=== PATIENT | female | born 1990 | race Caucasian/White ===

== ENCOUNTER 2024-02-03 11:05 | Emergency (ER) | payer BC, OTHER ==
[2024-02-03] VITALS (10 sets, daily range): BP systolic 107–114; BP diastolic 66–82
[~2024-02-03] VITALS: Ht 157.5 cm; Wt 95.5 kg
[2024-02-03] MEDS ORDERED: ERYTHROMYCIN O3.5 GM OS (12:04)
[2024-02-03] MEDS ORDERED: LEVOFLOXACIN750 MG PO (13:00)
== END 2024-02-03 13:25 | disposition home or self-care (01) | DRG 125 ==
LOC: ED 11:05
DX: H10.9 Unspecified conjunctivitis (principal); J32.8 Other chronic sinusitis; Z20.822 Contact with and (suspected) exposure to COVID-19